=== PATIENT | male | born 2005 | race Caucasian/White ===

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

== ENCOUNTER 2025-08-07 08:52 | Outpatient (CLI) | payer BC, SELFPAY ==
--- OUTSIDE RECORDS SUMMARY | 2025-08-07 09:05 | XMS_ITS | Clinical Summary ---
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
[2025-08-07 10:13] LABS: Thyroid Stimulating Hormone Reflex 4.710 uIU/mL (0.465-4.68)
[2025-08-07 11:02] LABS: Free T4 Free Thyroxine Reflex 1.24 ng/dL (0.78-2.19)
[2025-08-11 11:54] LABS: Total Triiodothyronine (T3) 1.38
== END 2025-08-07 08:53 | disposition home or self-care (01) ==
PROVIDERS: PCP Family Medicine; Visit Provider Family Medicine
DX: E03.9 Hypothyroidism, unspecified (principal)
CPT/HCPCS: 36415; 84439; 84443; 84480